=== PATIENT | male | born 1985 | race Caucasian/White ===

== ENCOUNTER 2016-10-15 22:48 | Emergency (ER) | payer MEDICAID ==
[~2016-10-15] VITALS: Ht 177.8 cm; Wt 81.6 kg
[~2016-10-15 22:48] MED LIST: ATIVAN1 M1 PO
--- NOTE | 2016-10-15 23:00 | NUR ---
BIBA TO ER BED 4
[2016-10-15 23:11] VITALS: BP 137/55
[2016-10-16] MEDS ORDERED: KETOROLAC 60 MG/2 ML VIAL IM ONE (00:25)
[2016-10-16 03:20] VITALS: BP 122/60
--- NOTE | 2016-10-16 05:04 | NUR ---
Note donavanone in EDM - 10/16/16 at 0535 by IAN Patient discharged with v/s stable. Written and verbal after care instructions given and explained. Patient alert, oriented and verbalized understanding of instructions. Ambulatory with steady gait. All questions addressed prior to discharge. ID band removed. Patient advised to follow up with PMD. Rx of NAPROSYN given. Patient educated on indication of medication including possible reaction and side effects. Opportunity to ask questions provided and answered.
== END 2016-10-16 02:35 | disposition home or self-care (01) ==
LOC: MED 22:48
DX: M54.9 Dorsalgia, unspecified (principal)
CPT/HCPCS: 96372; 99283; J1885

== ENCOUNTER 2017-01-06 19:17 | Emergency (ER) | payer MEDICAID ==
[~2017-01-06] VITALS: Ht 180.3 cm; Wt 92.1 kg
[~2017-01-06 19:17] MED LIST changes: -ATIVAN1 M1 PO; +LORA-476 PO
[2017-01-06 19:32] VITALS: BP 127/72
[2017-01-06] MEDS ORDERED: ENAL5TAB76 PO (19:42)
[2017-01-06] MEDS ORDERED: GABA300C PO (19:43)
[2017-01-06] MEDS ORDERED: METH500T14 PO (19:44)
[2017-01-06] MEDS ORDERED: OXYC5TAB92 PO (19:44)
--- NOTE | 2017-01-06 20:25 | NUR ---
TO ER OF
[2017-01-06] MEDS ORDERED: KETOROLAC 60 MG/2 ML VIAL IM ONE (20:30)
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
[2017-01-06 21:32] VITALS: BP 122/73
--- NOTE | 2017-01-06 21:33 | NUR ---
Patient discharged with v/s stable. Written and verbal after care instructions given and explained. Patient alert, oriented and verbalized understanding of instructions. Ambulatory with steady gait. All questions addressed prior to discharge. ID band removed. Patient advised to follow up with PMD. Rx of OXYCODONE 5MG-325MG Q4HRS/PRN given. Patient educated on indication of medication including possible reaction and side effects. Opportunity to ask questions provided and answered.
== END 2017-01-06 21:32 | disposition home or self-care (01) ==
LOC: MED 19:17
DX: M54.2 Cervicalgia (principal); W11.XXXA Fall on and from ladder, initial encounter; Y93.89 Activity, other specified; Y92.89 Other specified places as the place of occurrence of the external cause; Y99.8 Other external cause status
CPT/HCPCS: 72040; 96374; 99284; J1885

== ENCOUNTER 2017-08-19 16:57 | Emergency (ER) | payer MEDICAID ==
[~2017-08-19] VITALS: Ht 177.8 cm; Wt 86.2 kg
[~2017-08-19 16:57] MED LIST changes: +ENAL5TAB20 PO; +GABA300C PO; +METH500T14 PO; +OXYC5TAB4 PO
[2017-08-19 17:00] VITALS: BP 111/67
[2017-08-19] MEDS ORDERED: NACL 0.9% 1,000 ML IV ONE (17:15)
[2017-08-19] MEDS ORDERED: MORPHINE SULFATE 4 MG/ML SYR IVP ONE (17:25)
[2017-08-19 18:22] LABS: APPEARANCE,URINE CLEAR (CLEAR); BILIRUBIN,URINE NEGATIVE (NEGATIVE); BLOOD, URINE NEGATIVE (NEGATIVE); COLOR,URINE YELLOW (YELLOW); LEUKOCYTE ESTERASE ,URINE NEGATIVE (NEGATIVE); NITRITE, URINE NEGATIVE (NEGATIVE); UGLUCOSE NEGATIVE (NEGATIVE)
[2017-08-19 18:39] LABS: BASOPHILS # (AUTO) 0.3 K/uL (0.00-0.22); HEMATOCRIT 41.7 % (36-52); HEMOGLOBIN 13.8 g/dL (12.0-18.0); LYMPHOCYTES # (AUTO) 0.9 K/uL (2.0-11.5); MEAN CORPUSCULAR HEMOGLOBIN 28 pg (27-31); MEAN CORPUSCULAR HGB CONC 33 g/dL (33-37); MEAN CORPUSCULAR VOLUME 85.4 fL (80-94); MONOCYTES # (AUTO) 0.6 K/uL (0.8-1.0); NEUTROPHILS # (AUTO) 7.2 K/uL (1.8-7.7); PLATELET COUNT (AUTO) 248 K/uL (140-450); RED BLOOD CELL COUNT(AUTO) 4.89 MIL/uL (4.20-6.10); RED CELL DISTRIBUTION WIDTH 14.1 % (11.6-13.7)
[2017-08-19 18:52] LABS: BARBITURATE, URINE NEGATIVE ng/ml (NEG <=200); BENZODIAZEPINE, URINE NEGATIVE ng/mL (NEG <=200); CANNABINOID, URINE NEGATIVE ng/mL (NEG <=50); COCAINE, URINE NEGATIVE ng/mL (NEG <=300); OPIATE, URINE NEGATIVE ng/mL (NEG <=2000); PHENCYCLIDINE SCREEN,URINE NEGATIVE ng/mL (NEG <=25)
[2017-08-19 19:18] LABS: ANION GAP 15.1 (8-16); CARBON DIOXIDE 22.8 mmol/L (21-32); CREATININE 0.7 mg/dL (0.7-1.3); POTASSIUM 2.9 mmol/L (3.5-5.1)
[2017-08-19 19:19] LABS: ALBUMIN 3.8 g/dL (3.4-5.0); TOTAL BILIRUBIN 0.8 mg/dL (0.0-1.0)
[2017-08-19] MEDS ORDERED: KETOROLAC 30 MG/ML VIAL IM ONE (19:50)
[2017-08-19] MEDS ORDERED: POTASSIUM CHLORIDE 10 MEQ TABER PO ONE (19:50)
[2017-08-19 20:18] VITALS: BP 120/65
== END 2017-08-19 20:18 | disposition home or self-care (01) ==
LOC: MED 16:57
DX: M54.2 Cervicalgia (principal); F19.90 Other psychoactive substance use, unspecified, uncomplicated; F10.129 Alcohol abuse with intoxication, unspecified; E87.6 Hypokalemia; Z79.899 Other long term (current) drug therapy; Z88.8 Allergy status to other drugs, medicaments and biological substances
CPT/HCPCS: 36415; 80053; 80305; 81003; 85025; 93005; 99285; J1885; J2270; J7030; 96361; 96372; 96374

== ENCOUNTER 2018-08-01 12:41 | Emergency (ER) | payer MEDICAID ==
[~2018-08-01] VITALS: Ht 180.3 cm; Wt 81.6 kg
[2018-08-01 12:44] VITALS: BP 87/33
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
--- NOTE | 2018-08-01 12:44 | NUR ---
PT BIB ALS TO ER BED 11
--- NOTE | 2018-08-01 13:00 | NUR ---
PT REFUSING TO STAY ON MONITOR AT THIS TIME, ADVISED TO RETURN TO STRETCHER.
[2018-08-01] MEDS ORDERED: BUS5 PO (13:30)
[2018-08-01] MEDS ORDERED: LORA1TAB7 PO (13:30)
[2018-08-01] MEDS ORDERED: PHEN100C4 PO (13:30)
[2018-08-01] MEDS ORDERED: AMLO2.5T PO (13:30)
[2018-08-01] MEDS ORDERED: NACL 0.9% 2,000 ML IV SCH ×2 (13:33→15:57)
[2018-08-01] MEDS ORDERED: LORazepam 2 MG/ML VIAL IVP ONE (13:35)
--- NOTE | 2018-08-01 14:00 | NUR ---
PT FOUND OUT OF STRETCHER, RIPPED OFF MONITOR, ADVISED TO STAY IN STRETCHER.
[2018-08-01] MEDS ORDERED: MAG SULF 2000 MG/WATER PREMIX 50 ML IV ONE (14:20)
[2018-08-01 14:41] LABS: BASOPHILS # (AUTO) 0.1 K/uL (0.00-0.22); BASOPHILS % (AUTO) 1.2 % (0.0-2.0); EOSINOPHILS # (AUTO) 0.1 K/uL (0-0.4); EOSINOPHILS % (AUTO) 1.2 % (0.0-4.0); HEMATOCRIT 41.2 % (36-52); HEMOGLOBIN 13.6 g/dL (12.0-18.0); LYMPHOCYTES # (AUTO) 1.4 K/uL (2.0-11.5); LYMPHOCYTES % (AUTO) 23.2 % (20.5-51.1); MEAN CORPUSCULAR HEMOGLOBIN 30 pg (27-31); MEAN CORPUSCULAR HGB CONC 33 g/dL (33-37); MEAN CORPUSCULAR VOLUME 89.2 fL (80-94); MONOCYTES # (AUTO) 0.6 K/uL (0.8-1.0); MONOCYTES % (AUTO) 9.8 % (1.7-9.3); NEUTROPHILS # (AUTO) 3.8 K/uL (1.8-7.7); NEUTROPHILS % (AUTO) 64.6 % (42.2-75.2); PLATELET COUNT (AUTO) 206 K/uL (140-450); RED BLOOD CELL COUNT(AUTO) 4.62 MIL/uL (4.20-6.10); RED CELL DISTRIBUTION WIDTH 16.8 % (11.6-13.7); WHITE BLOOD COUNT (AUTO) 5.9 K/uL (4.8-10.8)
--- NOTE | 2018-08-01 15:00 | NUR ---
PT ON STRETCHER IN SUPINE POSITION A/OX4, EYES OPEN. BED IN LOW POSITION, SIDE RAILES UP AND LOCKED, FULL MONITOR ON, WILL CONTINUE TO MONITOR CLOSELY.
--- NOTE | 2018-08-01 15:03 | NUR ---
SHRUTI/RN ACCOMPANYING PT TO CT
[2018-08-01 15:07] LABS: BARBITURATE, URINE NEG. ng/ml (NEG <=200); BENZODIAZEPINE, URINE NEG. ng/mL (NEG <=200); CANNABINOID, URINE NEG. ng/mL (NEG <=50); COCAINE, URINE NEG. ng/mL (NEG <=300); OPIATE, URINE NEG. ng/mL (NEG <=2000); PHENCYCLIDINE SCREEN,URINE NEG. ng/mL (NEG <=25)
[2018-08-01 15:07] LABS: ALBUMIN 3.5 g/dL (3.4-5.0); ANION GAP 8.9 (8-16); ASPARTATE AMINOTRANSFERASE 122 U/L (15-37); CHLORIDE 97 mmol/L (98-107); GFR ARICAN-AMERICAN 110 mL/min (>90); GLUCOSE 106 mg/dL (74-106); SODIUM SERUM 136 mmol/L (136-145); TOTAL BILIRUBIN 0.5 mg/dL (0.0-1.0); UREA NITROGEN, BLOOD 11 mg/dL (7-18)
[2018-08-01 15:09] LABS: POTASSIUM 2.9 mmol/L (3.5-5.1)
[2018-08-01 15:16] LABS: APPEARANCE,URINE CLEAR (CLEAR); BILIRUBIN,URINE NEGATIVE (NEGATIVE); BLOOD, URINE TRACE-L (NEGATIVE); COLOR,URINE YELLOW (YELLOW); LEUKOCYTE ESTERASE ,URINE NEGATIVE (NEGATIVE); NITRITE, URINE NEGATIVE (NEGATIVE); PH,URINE 7.5 (5.0-9.0); UGLUCOSE NEGATIVE (NEGATIVE)
[2018-08-01 15:20] LABS: SALICYLATE < 2.8 mg/dL (2.8-20.0)
[2018-08-01] MEDS ORDERED: POTASSIUM CHLORIDE 10 MEQ TABER PO ONE ×2 (15:20→15:35)
[2018-08-01] MEDS ORDERED: KCL 20 MEQ/WATER INJ PREMIX 100 ML IV ONE (15:20)
[2018-08-01 15:21] LABS: ACETAMINOPHEN < 0.5 ug/ml (10-30)
[2018-08-01] MEDS ORDERED: LIDOCAINE/EPI 1% 1:100000 20 ML VIAL INJ ONE (15:50)
[2018-08-01] MEDS ORDERED: SILVER NITRATE APPLICATOR 1 EA SWAB TP ONE (15:50)
[2018-08-01 15:55] LABS: FREE T4 (FREE THYROXINE) 1.06 ng/dL (0.76-1.46); THYROID STIMULATING HORMONE 1.21 uIU/mL (0.34-3.74)
[2018-08-01] MEDS ORDERED: THIAMINE 200 MG/2 ML VIAL IM ONE (16:00)
--- NOTE | 2018-08-01 16:00 | NUR ---
PT ON STRETCHER IN SUPINE POSITION EYES OPEN, A/OX4, RESPIS E/U, ON FULL MONITOR BED IN LOW POSITION AND LOCKED, WILL CONTINUE TO MONITOR CLOSELY.
[2018-08-01] MEDS ORDERED: CLON0.5T PO (16:26)
[2018-08-01] MEDS ORDERED: METO25TE2 PO (16:26)
[2018-08-01] MEDS ORDERED: OXYC5TAB4 PO (16:26)
--- NOTE | 2018-08-01 17:00 | NUR ---
PT ON STRETCHER IN SUPINE POSITION, EYES OPEN, A/OX4 ON FULL MONITOR. BED IN LOW POSITION, LOCKED, AND NO IDENTIFIED REQUESTS AT THIS TIME.
--- NOTE | 2018-08-01 18:22 | NUR ---
PT REFUSING TO STAY ON MONITOR DEMANDING HIS HOME MEDICATIONS BUT UNABLE TO RECALL SPECIFIC DOSAGES AND TIMES
[2018-08-01] MEDS ORDERED: THIAMINE 100 MG TAB PO SCH (18:25)
--- NOTE | 2018-08-01 18:45 | NUR ---
PT STATES I'M LEAVING, RIPPED OFF MONITOR. EDMD AWARE.
--- NOTE | 2018-08-01 19:00 | NUR ---
PT REDIRECTED TO STRETCHER, PLACED ON MONITOR, CHANGED BACK INTO GOWN, STATES HE IS OKAY WITH BEING TRANSFERRED TO [place].
--- NOTE | 2018-08-01 19:00 | NUR ---
REPORT GIVEN TO KAMERON YOUNG, TRANSFER OF CARE AT THIS TIME
--- NOTE | 2018-08-01 19:15 | NUR ---
Report recieved from Diana. Will contine to monitor.
--- NOTE | 2018-08-01 19:19 | NUR ---
[facility] TRANSPORT AT BEDSIDE
--- NOTE | 2018-08-01 19:25 | NUR ---
Patient to be transferred to [facility]. Is being transferred due to insurance. Receiving facility has accepting physician and available space. ER physician has signed transfer form. Patient or responsible constitution party has agreed to transfer and signed form. Patient belongings inventoried and will be sent with patient. Copy of nursing notes, lab reports, EKG, Physicians Orders and X-rays to be sent with patient. Report called to charge nurse at receiving facility. [facility] ambulance service has been called for transfer.
[2018-08-01 20:25] VITALS: BP 116/68
--- NOTE | 2018-08-04 11:50 | NUR ---
Late Entry. 2 gms Mag IVPB was given and completed at 1650
== END 2018-08-01 19:25 | disposition short-term general hospital (02) ==
LOC: MED 12:41
DX: G40.909 Epilepsy, unspecified, not intractable, without status epilepticus (principal); E87.6 Hypokalemia; E83.42 Hypomagnesemia; F10.129 Alcohol abuse with intoxication, unspecified; I95.9 Hypotension, unspecified; R94.31 Abnormal electrocardiogram [ECG] [EKG]; E87.2 Acidosis; E87.8 Other disorders of electrolyte and fluid balance, not elsewhere classified; I10 Essential (primary) hypertension; Z79.899 Other long term (current) drug therapy
CPT/HCPCS: 36415; 70450; 71045; 80053; 80305; 81003; 82550; 83605; 83735; 84439; 84443; 84479; 84484; 85025; 93005; 96365; 96366; 99285; G0480; G0482; J3475; J7030; Q0092; 96361; 99284

== ENCOUNTER 2018-09-11 01:23 | Emergency (ER) | payer MEDICAID ==
[~2018-09-11] VITALS: Ht 175.3 cm; Wt 104.3 kg
[~2018-09-11 01:23] MED LIST changes: +CLON0.5T PO; -ENAL5TAB20 PO; -GABA300C PO; -LORA-476 PO; -METH500T14 PO; +METO25TE2 PO
[2018-09-11 01:34] VITALS: BP 76/49
--- NOTE | 2018-09-11 01:40 | NUR ---
PT ALOC, ETOH, PT WAS IN ER EARLIER BUT ELOPPED. PT WAS FOUND BY PD FACE DOWN ON GRASS. PT STATED HE FELL AND IS COMPLAINING OF NECK PAIN. PT HAS HX OF SEIZURES, HTN.
--- NOTE | 2018-09-11 01:40 | NUR ---
DR. DARDEN AT BEDSIDE.
--- NOTE | 2018-09-11 02:25 | NUR ---
TAKEN IN [facility]. ON MONITOR ESCORTED BY RN AND EMT.
--- NOTE | 2018-09-11 02:48 | NUR ---
PATIENT BACK FROM CT.
--- NOTE | 2018-09-11 03:28 | NUR ---
Patient sleeping. c-collar removed per Dr. Garduno order, patient arrousable to verbal stimuli.
--- NOTE | 2018-09-11 05:20 | NUR ---
patient up and walking, acting appropriate. CIRILOD made aware.
[2018-09-11 05:39] VITALS: BP 92/58
--- NOTE | 2018-09-11 05:40 | NUR ---
Patient discharged with v/s stable. Written and verbal after care instructions given and explained. Patient verbalized understanding. Ambulatory with steady gait. All questions addressed prior to discharge. Advised to follow up with PMD. Cab called for patient.
== END 2018-09-11 05:40 | disposition home or self-care (01) ==
LOC: MED 01:23
DX: G89.29 Other chronic pain (principal); M54.2 Cervicalgia; F10.129 Alcohol abuse with intoxication, unspecified; I10 Essential (primary) hypertension; G40.909 Epilepsy, unspecified, not intractable, without status epilepticus; Z88.1 Allergy status to other antibiotic agents; Z88.5 Allergy status to narcotic agent; Z79.891 Long term (current) use of opiate analgesic; Z79.899 Other long term (current) drug therapy; Z98.890 Other specified postprocedural states; Y90.9 Presence of alcohol in blood, level not specified
CPT/HCPCS: 70450; 72125; 99284

== ENCOUNTER 2019-06-03 12:15 | Inpatient (IN) | payer MEDICAID ==
[2019-06-03] VITALS (27 sets, daily range): BP systolic 61–125; BP diastolic 34–84
[~2019-06-03] VITALS: Ht 167.6 cm; Wt 99.8 kg
--- NOTE | 2019-06-03 12:25 | NUR ---
PT BIBA C/O ALTERED SECONDARY TO ETOH AND USE OF CLONAZEPA. PT IS HYPOTENSIVE AT THIS TIME. BOLUS IS RUNNING VIA LEFT WRIST 20G. PT IS A&OX1, SLEEPY, AND UNABLE TO ANSWER QUESTIONS. PATIENT IS NOT ABLE TO DESCRIBE PAIN AT THIS TIME; PATIENT POSITIONED FOR COMFORT; HOB ELEVATED; BEDRAILS UP X2; BED DOWN. ER MD MADE AWARE OF PT STATUS. PT IS ON MONITOR FOR CONTINUING MONITORING VITAL SIGNS.
[2019-06-03] MEDS ORDERED: NACL 0.9% 1,000 ML IV ONE ×2 (12:30→13:30)
--- NOTE | 2019-06-03 13:00 | NUR ---
PT IS HYPOTENSIVE. BOLUS IS RUNNING VIA LEFT WRIST 20G. PT IS ON MONITOR WILL CONTINUE TO MONITOR PT'S VITAL SIGNS.
[2019-06-03 13:07] LABS: BASOPHILS # (AUTO) 0.1 K/uL (0.00-0.22); EOSINOPHILS # (AUTO) 0.2 K/uL (0-0.4); EOSINOPHILS % (AUTO) 3.3 % (0.0-4.0); HEMATOCRIT 27.4 % (36-52); HEMOGLOBIN 9.2 g/dL (12.0-18.0); LYMPHOCYTES # (AUTO) 1.3 K/uL (2.0-11.5); LYMPHOCYTES % (AUTO) 23.8 % (20.5-51.1); MEAN CORPUSCULAR HEMOGLOBIN 32 pg (27-31); MEAN CORPUSCULAR HGB CONC 33 g/dL (33-37); MEAN CORPUSCULAR VOLUME 94.5 fL (80-94); MONOCYTES # (AUTO) 0.8 K/uL (0.8-1.0); MONOCYTES % (AUTO) 13.5 % (1.7-9.3); NEUTROPHILS # (AUTO) 3.3 K/uL (1.8-7.7); NEUTROPHILS % (AUTO) 58.4 % (42.2-75.2); PLATELET COUNT (AUTO) 288 K/uL (140-450); RED CELL DISTRIBUTION WIDTH 16.2 % (11.6-13.7); WHITE BLOOD COUNT (AUTO) 5.7 K/uL (4.8-10.8)
[2019-06-03] MEDS ORDERED: NALOXONE 0.4 MG/ML VIAL IVP ONE ×2 (13:30→15:15)
[2019-06-03 13:42] LABS: ANION GAP 14.1 (8-16); CARBON DIOXIDE 22.5 mmol/L (21-32); CHLORIDE 106 mmol/L (98-107); CREATININE 1.4 mg/dL (0.7-1.3); GFR ARICAN-AMERICAN 74 mL/min (>90); GLUCOSE 112 mg/dL (74-106); POTASSIUM 3.6 mmol/L (3.5-5.1); SODIUM SERUM 139 mmol/L (136-145); UREA NITROGEN, BLOOD 16 mg/dL (7-18)
[2019-06-03] MEDS ORDERED: NALOXONE PFS 2 MG/2 ML SYR ONE ×2 (13:47→13:48)
[2019-06-03 13:48] LABS: ALBUMIN 3.1 g/dL (3.4-5.0); ASPARTATE AMINOTRANSFERASE 9 U/L (15-37); TOTAL BILIRUBIN 0.3 mg/dL (0.0-1.0)
[2019-06-03 13:49] LABS: ACETAMINOPHEN < 0.5 ug/ml (10-30); SALICYLATE < 2.8 mg/dL (2.8-20.0)
--- NOTE | 2019-06-03 14:10 | NUR ---
STRAIGHT CATH IMPLEMENTED AND OBTAINED URINE SAMPLE. PT TOLERATED WELL.
--- NOTE | 2019-06-03 14:20 | NUR ---
PT IS TAKING TO CT SCAN. DR. STEPHENSON ASSESSED PT AND SAID PT IS OK TO DO CT SCAN W/O BEING ON MONITOR. IMAGING TECHES ARE TAKING PT VIA Chronicity AT THIS TIME.
--- NOTE | 2019-06-03 14:25 | NUR ---
RECEIVED CALL FROM [employer] BECAUSE PATIENT WAS COMBATIVE. FOUND PATIENT ATTEMPTING TO LEAVE CT TABLE AND WAS COMBATIVE. DR STEPHENSON MADE AWARE.
--- NOTE | 2019-06-03 14:27 | NUR ---
DR STEPHENSON AT CT WITH PATIENT. PT TO BE RETURNED TO BED [address]
--- NOTE | 2019-06-03 14:35 | NUR ---
PT IS COMBATIVE AT CT SCAN ROOM AND HAS BEEN TAKEN BACK VIA GURNEY ASSISTED BY TWO IMAGING TECHES, RN, AND EMT. PT IS ON BEHAVIORAL RESTRAINTS ACCORDING TO DR. STEPHENSON'S ORDER. PT IS RESTING IN BED AT THIS TIME.
--- NOTE | 2019-06-03 15:10 | NUR ---
DR STEPHENSON AT BEDSIDE AND AWARE PT BP IS 80s/30s. TO INPUT MORE ORDERS.
[2019-06-03] MEDS ORDERED: NACL 0.9% 500 ML IV ONE (15:15)
--- NOTE | 2019-06-03 15:17 | NUR ---
PHLEB AT BEDSIDE
[2019-06-03] MEDS ORDERED: cefTRIAXone 1,000 MG VIAL ONE (15:42)
[2019-06-03 15:46] LABS: APPEARANCE,URINE CLEAR (CLEAR); BILIRUBIN,URINE NEGATIVE (NEGATIVE); BLOOD, URINE NEGATIVE (NEGATIVE); COLOR,URINE YELLOW (YELLOW); LEUKOCYTE ESTERASE ,URINE NEGATIVE (NEGATIVE); NITRITE, URINE NEGATIVE (NEGATIVE); UGLUCOSE NEGATIVE (NEGATIVE)
[2019-06-03 15:56] LABS: BARBITURATE, URINE NEG. ng/ml (NEG <=200); BENZODIAZEPINE, URINE POS. ng/mL (NEG <=200); CANNABINOID, URINE NEG. ng/mL (NEG <=50); COCAINE, URINE NEG. ng/mL (NEG <=300); OPIATE, URINE NEG. ng/mL (NEG <=2000); PHENCYCLIDINE SCREEN,URINE NEG. ng/mL (NEG <=25)
--- NOTE | 2019-06-03 16:14 | NUR ---
PT IS SLEEPING IN THE BED. BP IS 71/42MMHG. HR [address] DR. STEPHENSON NOTIFIED. PT IS ON MONITOR WILL CONTINUE MONITOR PT'S VITAL SIGNS.
[2019-06-03] MEDS ORDERED: ONDANSETRON 4 MG/2 ML VIAL IVP PRN (16:45)
[2019-06-03] MEDS ORDERED: cloNIDine 0.1 MG TAB PO PRN (16:45)
[2019-06-03] MEDS ORDERED: DOCUSATE SODIUM 250 MG GELCAP PO PRN (16:45)
[2019-06-03] MEDS ORDERED: HYDROcodone/APAP 5/325 MG 1 TAB TAB PO PRN (16:45)
[2019-06-03] MEDS ORDERED: SODIUM PHOSPHATE 118 ML ENEM RC PRN (16:45)
[2019-06-03] MEDS ORDERED: ALUMINUM HYD/MAG/SIMETHICONE 30 ML UDC PO PRN (16:45)
[2019-06-03] MEDS ORDERED: BISACODYL 10 MG SUPP RC PRN (16:45)
[2019-06-03] MEDS ORDERED: guaiFENesin DM 200/20 MG-10 ML 10 ML UDC PO PRN (16:45)
[2019-06-03] MEDS ORDERED: diphenhydrAMINE 50 MG/ML VIAL IVP PRN (16:45)
[2019-06-03] MEDS ORDERED: POTASSIUM CHLORIDE 10 MEQ TABER PO PRN (16:45)
[2019-06-03] MEDS ORDERED: ACETAMINOPHEN 650 MG SUPP RC PRN (16:45)
[2019-06-03] MEDS ORDERED: IPRATROPIUM 0.02% 0.5 MG/2.5 ML NEBU INH PRN (16:45)
[2019-06-03] MEDS ORDERED: MAG SULF 2000 MG/WATER PREMIX 50 ML IV PRN (16:45)
[2019-06-03] MEDS ORDERED: ALBUTEROL 0.083% 2.5 MG/3 ML NEBU INH PRN (16:45)
[2019-06-03] MEDS ORDERED: ACETAMINOPHEN 325 MG TAB PO PRN (16:45)
[2019-06-03] MEDS ORDERED: MAGNESIUM OXIDE 400 MG TAB PO PRN (16:45)
--- NOTE | 2019-06-03 17:35 | NUR ---
ADMITTED FROM ER THIS 34 YEAR OLD MALE PER [facility]. BY ER NURSES , DX BENZODIAZEPINE OD AND ENCEPHALOPATHY. LETHARGIC BUT AROUSABLE TO SHAKING. RESPONDS VERBALLY, SPEECH IS SLURRED. HEPLOCK ON LEFT AC G 18. INTACT. SEVERE WEAKNESS. SL MOVEMENT OF HANDS NOTED WHEN ASKED TO MOVE. 02 2 L/MIN/NC. BREATHE SOUNDS DIMINISHED.
--- NOTE | 2019-06-03 17:40 | NUR ---
Patient will be admitted to care of BENZO OVERDOSE, ENCEHALOPATHY. Admited to ICU. Will go to BED 5. Belongings list completed. Report to HANNAH LONDON.
--- NOTE | 2019-06-03 17:45 | NUR ---
IV D5 0.45% NS STARTED AT 75 ML/HR.
--- NOTE | 2019-06-03 17:45 | NUR ---
PER ER NURSE PATIENCE. PT. GETS VERY COMBATIVE AND PULLED HIS IV IN ER. PT.WAS CALM WHEN TRANSFERRED FROM [facility] TO ICU BED. REORIENTED TO THE UNIT AND NURSES.REASURED
[2019-06-03] MEDS: DEXT 5% / NACL 0.45% 1,000 ML IV SCH (17:49)
--- NOTE | 2019-06-03 17:50 | NUR ---
PT. WANTS HIS MOTHER TO BE CALLED.GAVE MOTHER'S PHONE NUMBER. SPEECH SLURRED AT THIS TIME.
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
--- NOTE | 2019-06-03 18:00 | NUR ---
BP 61/34. DR. CHRIS ARAUZ. 0.9 NS BOLUS STARTED. AMADO CATH. FR 16 INSERTED. OBTAINED 800 ML CLEAR YELLOWISH URINE.
[2019-06-03] MEDS ORDERED: NACL 0.9% 1,000 ML IV SCH (18:20)
--- NOTE | 2019-06-03 18:20 | NUR ---
DR. PEREZ CALLED BACK. MADE AWARE OF PT'S LOW BLOOD PRESSURE AND LETHARGY. GAVE ORDERS. AWARE THAT 0.9 NS BOLUS WAS STARTED AT 1800.
[2019-06-03] MEDS: DOPamine 400 MG/D5W PREMIX 250 ML IV PRN (18:40)
--- NOTE | 2019-06-03 18:40 | NUR ---
IV STARTED ON LEFT FA WITH G 20 ANGIOCATH. DOPAMINE DRIP STARTED AT 5 MCG/KG/MIN. (SEE IV SPREADSHEET)
--- NOTE | 2019-06-03 19:00 | NUR ---
REMAINS LETHARGIC BUT AROUSABLE. BY CALLING NAME. OPENS EYES.
--- NOTE | 2019-06-03 19:15 | NUR ---
REPORT GIVEN TO HAWK YOUNG.
--- NOTE | 2019-06-03 19:18 | NUR ---
RECEIVED REPORT FROM DAYSHIFT NURSE AT BEDSIDE, PATIENT LETHARGIC, OPENS EYES BUT NO EYE CONTACT, NONVERBAL, MUMBLING SOME WORDS. DOES NOT FOLLOW COMMANDS. ON NASAL CANNULA 2LPM. SATURATIONS 95%, BREATHING IS UNLABORED, LUNG SOUNDS CLEAR. NO SIGNS OF COUGH OR CONGESTION. CONNECTED TO BRICK CHIMNEY BUILDER, HEART RATE TRENDING LOW 58-65 BPM. ON DOPAMINE DRIP, 20 MCG/KG/MIN-51.02ML/HR. BLOOD PRESSURE 106/62. SKIN IS WARM AND DRY, AFEBRILE. ABDOMEN IS SOFT AND NONTENDER, ACTIVE BOWEL SOUNDS. LEFT AC 20G PERIPHERAL IV, FLUSHED AND PATENT, INFUSING DOPAMINE DRIP. LEFT FOREARM 20 G PERIPHERAL IV, INFUSING IV FLUIDS, D51/2NS @ 75ML/HR. NO SYMPTOMS WHEN FLUSHED. AMADO CATHETER IN PLACE, CLEAR YELLOW URINE NOTED. SCD's IN PLACE TO BILATERAL LOWER EXTREMITIES. BED IS LOCKED AND IN LOWEST POSITION, SIDERAILS UPx3, SAFETY ALARMS IN PLACE. WILL CONTINUE TO MONITOR.
--- NOTE | 2019-06-03 20:27 | NUR ---
SPOKE WITH DR. PEREZ, UPDATED ON PATIENTS CONDITION. PATIENT BARELY ALERT TO HARD STERNAL RUB, ONLY OPENS EYES SLIGHTLY, NO EYE CONTACT, MUMBLING WORDS. DOPAMINE DRIP NOW AT 15 MCG/KG/MIN AND STILL CONTINUED ON PERIPHERAL IV. NEW ORDERS RECEIVED, CONFIRMED TO GIVE NARCAN 0.4 MG AND TO ORDER SURGICAL CONSENT TOMORROW FOR CENTRAL LINE INSERTION. CONFIRMED FULL CODE STATUS AND FOR CT HEAD SCAN TOMORROW MORNING. WILL CARRY OUT.
[2019-06-03] MEDS ORDERED: NALOXONE 0.4 MG/ML VIAL IVP SCH (20:40)
--- NOTE | 2019-06-03 21:52 | NUR ---
PATIENT WOKE UP SUDDENLY YELLING NURSE MY SPINAL CORD! MY BACK IT HURTS! I NEED DILAUDID IV. PATIENT REPORTS AT [facility] HE RECEIVES DILAUDID FOR PAIN. WILL PAGE MD FOR ORDERS.
--- NOTE | 2019-06-03 21:57 | NUR ---
NEW ORDERS RECEIVED FROM DR. PEREZ, 0.5 MG DILAUDID IVP Q4H FOR SEVERE PAIN. PATIENTS CHART STATES AN ALLERGY TO HYDROCODONE. ASKED PATIENT ABOUT THE ALLERGIES AND PATIENT REPORTS HE CURRENTLY TAKES HYDROCODONE AND HYDROMORPHONE FOR CHRONIC PAIN AND HAS NEVER HAD A REACTION. SPOKE WITH STEPHANIA FROM [facility] TO CONFIRM OVERRIDE ORDER, STATES TO NOTE THAT PATIENT TOLERATES DILAUDID AND OK TO GIVE. WILL CARRY OUT.
[2019-06-03] MEDS ORDERED: HYDROmorphone 1 MG/ML AMP ONE (22:17)
--- NOTE | 2019-06-03 22:30 | NUR ---
PATIENT NOW AWAKE AND ALERT, MAKING FULL SENTENCES. ABLE TO PROVIDE MEDICAL HISTORY. OPENS EYES, FOLLOWS COMMANDS, ABLE TO MOVE UPPER EXTREMITIES. ALL NEEDS MET AT THIS TIME. PATIENT ORIENTED TO PAIN MEDICATION SCHEDULE.
[2019-06-03] MEDS: HYDROmorphone 1 MG/ML AMP IVP PRN (22:48)
--- NOTE | 2019-06-03 23:23 | NUR ---
PATIENT STATES PAIN IS STILL PRESENT, NOT SEVERE AFTER ADMINISTERED MEDICATION. ASSISTED WITH POSITION CHANGE. WILL CONTINUE TO MONITOR.
[2019-06-04] VITALS (45 sets, daily range): BP systolic 82–138; BP diastolic 38–79
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
[2019-06-04] MEDS: DOPamine 400 MG/D5W PREMIX 250 ML IV PRN (01:56)
--- NOTE | 2019-06-04 01:57 | NUR ---
DEV NEW BAG OF DOPAMINE DRIP.
--- NOTE | 2019-06-04 02:45 | NUR ---
PT COMPLAINING OF PAIN RATES IT 10/10, RADIATES FROM HEAD AND NECK DOWN TO THE LOWER EXTREMITIES. PATIENT ABLE TO MOVE ALL EXTREMITIES BUT REPORTS TOO MUCH PAIN WITH MOVEMENT. PATIENT IS AWAKE AND ALERT, ABLE TO EXPLAIN TO RN WHAT HAPPENED PRIOR TO ADMISSION. DENIES SUICIDAL IDEATION, UPDATED ON TREATMENT PLAN. VERBALIZES UNDERSTANDING.
[2019-06-04] MEDS: HYDROmorphone 1 MG/ML AMP IVP PRN ×2 (02:48→06:50)
[2019-06-04] MEDS: LORazepam 2 MG/ML VIAL IVP PRN ×2 (03:05→10:44)
--- NOTE | 2019-06-04 03:10 | NUR ---
BECOMING MORE RESTLESS AND AGITATED, PATIENT UNABLE TO SELF TURN DUE TO SEVERE PAIN AT HEAD, NECK, SPINE, AND GROIN AREA. PATIENT BECOMING MORE ANXIOUS, WILL ADMINISTER PRN MEDICATION.
--- NOTE | 2019-06-04 04:40 | NUR ---
SPONGE BATH, AMADO CARE, AND SKIN CARE PROVIDED. PATIENT RINSED MOUTH. TOLERATED WELL. ASSISTED WITH POSITIONING. PATIENT ALERT AND AWAKE. UPDATED ON PLAN TO HAVE CT SCAN AND NEXT PAIN MEDICATION DUE. SAFETY ALARMS IN PLACE, SIDERAILS UP x3
--- NOTE | 2019-06-04 05:00 | NUR ---
SPOKE WITH STRIPPER APPRENTICE FOR CT SCAN OF THE HEAD, CONFIRMED THERE IS ONE MORE PATIENT IN ER, AND WILL CALL BACK WHEN CT IS AVAILABLE. PATIENT IS ALREADY READY TO GO, UPDATED ON PROCEDURE, WILL MEDICATE WITH PAIN MEDS PRIOR TO TRANSPORT.
[2019-06-04 05:15] LABS: HEMATOCRIT 29.3 % (36-52); HEMOGLOBIN 9.6 g/dL (12.0-18.0); MEAN CORPUSCULAR HEMOGLOBIN 31 pg (27-31); MEAN CORPUSCULAR HGB CONC 33 g/dL (33-37); MEAN CORPUSCULAR VOLUME 95.3 fL (80-94); PLATELET COUNT (AUTO) 258 K/uL (140-450); RED BLOOD CELL COUNT(AUTO) 3.07 MIL/uL (4.20-6.10); RED CELL DISTRIBUTION WIDTH 15.8 % (11.6-13.7); WHITE BLOOD COUNT (AUTO) 4.8 K/uL (4.8-10.8)
[2019-06-04 05:33] LABS: ALBUMIN 3.1 g/dL (3.4-5.0); ANION GAP 12.4 (8-16); CARBON DIOXIDE 23.5 mmol/L (21-32); CREATININE 1.1 mg/dL (0.7-1.3); POTASSIUM 3.9 mmol/L (3.5-5.1); TOTAL BILIRUBIN 0.3 mg/dL (0.0-1.0)
--- NOTE | 2019-06-04 06:17 | NUR ---
CALLING THE XRAY AND CT DEPARTMENT, NO ONE ANSWERING AT THIS TIME.
--- NOTE | 2019-06-04 06:19 | NUR ---
CALLED ER TO SEE IF PRAMOD العلي IS IN THE DEPARTMENT, BEEN CALLING TO SEE IF PT CAN NOW BE TAKEN FOR CT. LEFT A MESSAGE TO SHY TO HAVE THE TECH CALL ICU IF HE GOES IN ER. WILL ATTEMPT TO CALL CT AND RADIOLOGY DEPARTMENT AGAIN.
--- NOTE | 2019-06-04 06:30 | NUR ---
CALLED RADIOLOGY DEPARTMENT, SPOKE WITH ANN. ASKED IF PT CAN BE TAKEN TO CT BEFORE THE SHIFT ENDS. ACCORDING TO HIM, HE CANNOT BE CERTAIN FOR THERE ARE STUDIES ORDERED IN ER THAT ARE TO BE TAKEN CARE OF. MAY NEED TO HAVE THE NEXT SHIFT DO THE CT SCAN. MAY TAKE 1 HOUR BEFORE THE PT CAN BE TAKEN TO CT.
[2019-06-04 06:42] LABS: LYMPHOCYTES % (MANUAL) 28 % (20-46); MONOCYTES % (MANUAL) 16 % (5-12)
[2019-06-04 06:43] LABS: EOSINOPHILS % (MANUAL) 5 % (0-4)
--- NOTE | 2019-06-04 07:30 | NUR ---
RECEIVED PATIENT ON BED.PT NO CO PAIN NOR ANY DISCOMFORT.LEFT AC AND LEFT FOREARM IV PATENT AND INTACT WITH D5.45 AT 75 ML/H AND DOPAMINE AT 10 MCG/KG/MIN.NO SIGNS OF INFILTRATION.AMADO TO GRAVITY WITH YELLOW URINE OUTPUT.NPO ORDERED.EXPLAINED TO PATIENT WILL HAVE CT SCAN OF THE BRAIN.PT VERBAIZED UNDERSTANDING.NSR ON THE MONITOR.
[2019-06-04] MEDS: DEXT 5% / NACL 0.45% 1,000 ML IV SCH (07:36)
--- NOTE | 2019-06-04 08:50 | NUR ---
PT WENT FOR CT OF THE HEAD WITH A MONITOR.
--- NOTE | 2019-06-04 08:52 | NUR ---
PATIENT IS SCREENED AND CATEGORIZED MODERATE NUTRITION RISK. PATIENT WILL BE SEEN WITHIN 1-2 DAY OF ADMISSION. 06/03/2019-06/08/[address]
--- NOTE | 2019-06-04 09:02 | NUR ---
PATIENT IS SCREENED AND CATEGORIZED MODERATE NUTRITION RISK. PATIENT WILL BE SEEN WITHIN 3-5 DAY OF ADMISSION. *DISREGARD PREVIOUS NOTE D/T INCORRECT DATE AND TIME FRAME 06/06/2019-06/08/[address]
--- NOTE | 2019-06-04 09:10 | NUR ---
PT RETURNED FORM CT OF THE HEAD.PT VERY COOPERATIVE AND TOLERATED WELL. Addendum: 06/04/19 at 1026 by Jayne Alicea RN RN MEAN PT RETURNED FROM ct OF THE HEAD.
[2019-06-04] MEDS ORDERED: HYDROmorphone 1 MG/ML AMP IVP SCH (10:07)
--- NOTE | 2019-06-04 11:30 | NUR ---
NO ANXIETY NOTED.
[2019-06-04] MEDS ORDERED: KETOROLAC 30 MG/ML VIAL IVP PRN (11:55)
[2019-06-04] MEDS ORDERED: PHENYTOIN 100 MG/4 ML UDC PO SCH (11:55)
[2019-06-04] MEDS ORDERED: oxyCODONE 5 MG TAB PO PRN (12:00)
--- NOTE | 2019-06-04 12:06 | NUR ---
Dr graves paged because per pt doesnt want oxycodone and wanted dilaudid for pain.per pt oxycodone wears out for 30 to 45 min out of his system.per patient will sign ama.
--- NOTE | 2019-06-04 12:14 | NUR ---
dr graves called back and doesnt want to order dilaudid and doesnt want pt to leave against medical advice because pt is not alert enough.
--- NOTE | 2019-06-04 12:35 | NUR ---
Chelsy Felder transmission supervisor and security talking to patient regarding signing ama .
--- NOTE | 2019-06-04 12:40 | NUR ---
SPOKE WITH PT'S MOTHER JAYANT COSME, TRANSLATED BY PT'S BROTHER ARTUR. PT'S MOTHER AND BROTHER MADE AWARE OF PT'S DECISION TO LEAVE AMA. PER PT'S BROTHER, THEY HAVE BEEN DEALING WITH PT GOING FROM [facility] AFTER [facility]OTHER AND CANNOT COME AND PICK HIM UP. PT IS AAOX4 AT THIS TIME AND STATED HE WILL LEAVE VIA LYFT. RN OUTPATIENT SURGERY ZARIA AND A VALET CASHIER IN THE UNIT AT THIS TIME.
--- NOTE | 2019-06-04 12:46 | NUR ---
DC AMADO ORDERED .PT TOLERATED WELL.
--- NOTE | 2019-06-04 12:50 | NUR ---
SPOKE WITH DR. RENAE REGARDING PT'S DECISION TO LEAVE AMA IF HE DOES NOT GET IV DILAUDID. PER DR. RENAE, ONLY PO OXYCODONE AT THIS TIME. PT EXPLAINED THE RISKS AND CONSEQUENCES OF HAVING SEIZURES AND LEAVING AMA. PT STATED HE WILL TAKE SEIZURE MEDICATION BEFORE LEAVING THE HOSPITAL. GROCERY CLERK CHECKING AND PRIMARY RN AT BEDSIDE AT THIS TIME. Addendum: 06/04/19 at 1416 by Kay Ha RN PER DR. RENAE, OK TO LEAVE AMA IF PT IS AWAKE AND STABLE
--- NOTE | 2019-06-04 12:50 | NUR ---
PT REFUSED DILANTIN AND OXYCODONE.
--- NOTE | 2019-06-04 13:00 | NUR ---
DC IVF ORDERED.
[2019-06-04] MEDS ORDERED: PHENYTOIN 100 MG/4 ML UDC PO ONE (13:08)
--- NOTE | 2019-06-04 13:20 | NUR ---
PT WHEELED TO LOBBY VIA WHEELCHAIR AND AWAITING FOR LYFT. Addendum: 06/04/19 at 1600 by Jayne Alicea RN RN ABOVE TIME SHOULD BE 1520 NOT 1320
--- NOTE | 2019-06-04 13:33 | NUR ---
PT WENT HOME WITH bailee.NO CO PAIN NOR ANY DISCOMFORT. Addendum: 06/04/19 at 1601 by Jayne Alicea RN RN ABOVE TIME SHOULD BE 1533 NOT 1333.
--- NOTE | 2019-06-04 13:34 | NUR ---
PT CO OF BEING NAUSEATED.ZOFRAN GIVEN.
--- NOTE | 2019-06-04 14:21 | NUR ---
NO NAUSEA NOTED.
--- NOTE | 2019-06-04 15:05 | NUR ---
PATIENT WANTED TO LEAVE AGAINST MEDICAL ADVICE .PT ALERT,ORIENTED X 4 .NO CO DIZZINESS.PT GOES TO THE BEDSIDE COMMODE AND HAD A BIG BOWEL MOVEMENT AND HAD URINATED WITH A URINAL WITH STEADY GAIT.NO CO PAIN NOR ANY DISCOMFORT.OXYCODONE HELPED.BUT HE PREFERS DILAUDID AND WILL SEE SOMEBODY THAT IS WHY HE WANTED TO SIGN AGAINST MEDICAL ADVICE AND DONT WANT TO WAIT TO BE DISCHARGED TOMORROW.PT IS IN A PLEASANT MOOD,CONVERSANT AND JOKING.PT ATE 50 PERCENT OF FULL LIQUID DIET.PER PATIENT HIS FAMILY DOESNT LIKE HIM AND WONT PICK HIM UP SO HE CALLED lyft. Addendum: 06/04/19 at 1610 by Jayne Alicea RN RN EXPLAINED TO THE PATIENT THE RISKS AND CONSEQUENCES INVOLVED IN LEAVING THE HOSPITAL AT THIS TIME ,THE BENEFITS OF CONTINUED TREATMENT AND HOSPITALIZATION, AND THE ALTERNATIVES, IF ANY TO CONTINUED TREATMENT AND HOSPITALIZATION..PT IS REFUSING ALL DISCHARGE INSTRUCTIONS ,FLU SHOT ,FFUP DISCHARGE MEDICATIONS,ACTIVITY,DIET,FOLLOW UP,REFERRAL TO THE NEXT LEVEL OF CARE PROVIDER AND OR REFUSE TO AUTHORIZE RELEASE OF HEALTH INFORMATION.DESPITE ALL OF THESE PATIENT WANTED TO LEAVE AGAINST MEDICAL ADVISE.DR OC GARCÍA.MOLDER APPRENTICE Bijal GARCÍA.
--- NOTE | 2019-06-04 15:10 | NUR ---
LEFT AC AND LEFT FOREARM IV REMOVED.PT TOLERATED WELL.NO BLEEDING NOR HEMATOMA NOTED.
== END 2019-06-04 15:33 | disposition left against medical advice (07) | DRG 812 ==
LOC: MED 12:15 → MIC 16:45
PROVIDERS: ADMIT Internal Medicine Pulmonary Disease; ATTEND Internal Medicine Pulmonary Disease
DX: T42.4X1A Poisoning by benzodiazepines, accidental (unintentional), initial encounter (principal); N17.0 Acute kidney failure with tubular necrosis; G93.41 Metabolic encephalopathy; D64.9 Anemia, unspecified; I10 Essential (primary) hypertension; G89.29 Other chronic pain; M54.2 Cervicalgia; G40.909 Epilepsy, unspecified, not intractable, without status epilepticus; F11.10 Opioid abuse, uncomplicated; F10.129 Alcohol abuse with intoxication, unspecified; Z53.29 Procedure and treatment not carried out because of patient's decision for other reasons; E66.9 Obesity, unspecified; F41.9 Anxiety disorder, unspecified; Z88.8 Allergy status to other drugs, medicaments and biological substances; Z79.899 Other long term (current) drug therapy; Y92.89 Other specified places as the place of occurrence of the external cause; Z68.35 Body mass index [BMI] 35.0-35.9, adult
CPT/HCPCS: 36415; 70450; 71045; 80053; 80305; 81003; 81025; 82550; 83605; 84484; 85025; 87040; 87081; 93005; 96361; 96365; 96375; 96376; 99291; C1758; G0480; G0482; J0696; J1170; J1265; J2060; J2310; J2405; J7030; J7060; Q0092

== ENCOUNTER 2021-02-20 16:50 | Emergency (ER) | payer SELFPAY ==
[~2021-02-20] VITALS: Ht 177.8 cm; Wt 108.9 kg
[2021-02-20 16:53] VITALS: BP 132/76
--- NOTE | 2021-02-20 16:53 | NUR ---
35 Y/O MALE BIBA C/O PALPITATIONS XTODAY. PER EMS WAS DISCHARGED FROM [facility] TODAY FOR SEIZURES, WENT TO [facility], HAD VODKA AND STARTED FEELING PALPITATIONS. MEDHX: STROKE, SEIZURE, HTN ALLERGIES: NORCO, BACLOFEN
[2021-02-20] MEDS ORDERED: NACL 0.9% 1,000 ML IV ONE (16:55)
--- NOTE | 2021-02-20 17:03 | NUR ---
PER ERMD 12 LEAD WAS DONE ON PT AND CAME BACL SINUS TACHYCARDIA AT 125 HR.
[2021-02-20] MEDS ORDERED: LORazepam 2 MG/ML VIAL IVP ONE (17:15)
[2021-02-20] MEDS ORDERED: KETOROLAC 30 MG/ML VIAL IVP ONE (17:15)
[2021-02-20] MEDS ORDERED: METOPROLOL 50 MG TAB PO ONE (17:15)
[2021-02-20] MEDS ORDERED: LIB25 PO (18:20)
[2021-02-20] MEDS ORDERED: levETIRAcetam 500 MG TAB PO ONE (18:45)
[2021-02-20 18:54] VITALS: BP 131/95
--- NOTE | 2021-02-20 18:54 | NUR ---
Patient discharged with v/s stable. Written and verbal after care instructions given and explained. Patient alert, oriented and verbalized understanding of instructions. Ambulatory with steady gait. All questions addressed prior to discharge. ID band removed. IV Discontinued. Patient advised to follow up with PMD. Rx of LIBRIUM given. Patient educated on indication of medication including possible reaction and side effects. Opportunity to ask questions provided and answered.
== END 2021-02-20 18:54 | disposition home or self-care (01) ==
LOC: MED 16:50
DX: R00.2 Palpitations (principal); F41.9 Anxiety disorder, unspecified; F10.239 Alcohol dependence with withdrawal, unspecified; I10 Essential (primary) hypertension; Z79.899 Other long term (current) drug therapy; Z98.890 Other specified postprocedural states; Z88.6 Allergy status to analgesic agent; Z88.8 Allergy status to other drugs, medicaments and biological substances; Z88.5 Allergy status to narcotic agent
CPT/HCPCS: 93005; 96361; 96374; 96375; 99284; J1885; J2060

== ENCOUNTER 2021-02-21 00:55 | Emergency (ER) | payer MEDICAID ==
[~2021-02-21] VITALS: Ht 177.8 cm; Wt 108.9 kg
[~2021-02-21 00:55] MED LIST changes: +LIB25 PO
[2021-02-21] MEDS ORDERED: LORazepam 1 MG TAB PO ONE (01:05)
[2021-02-21] MEDS ORDERED: ASPIRIN 325 MG TAB PO ONE (01:05)
[2021-02-21] MEDS ORDERED: IBUPROFEN 800 MG TAB PO ONE (01:05)
[2021-02-21 01:06] VITALS: BP 141/87
--- NOTE | 2021-02-21 01:06 | NUR ---
TO BED AMBULATORY
[2021-02-21 01:29] LABS: BASOPHILS # (AUTO) 0.1 K/uL (0.00-0.22); BASOPHILS % (AUTO) 0.6 % (0.0-2.0); EOSINOPHILS # (AUTO) 0.3 K/uL (0-0.4); HEMOGLOBIN 14.4 g/dL (12.0-18.0); LYMPHOCYTES # (AUTO) 1.9 K/uL (2.0-11.5); LYMPHOCYTES % (AUTO) 22.9 % (20.5-51.1); MEAN CORPUSCULAR HEMOGLOBIN 29 pg (27-31); MEAN CORPUSCULAR HGB CONC 34 g/dL (33-37); MEAN CORPUSCULAR VOLUME 86.7 fL (80-94); MONOCYTES # (AUTO) 1.2 K/uL (0.8-1.0); MONOCYTES % (AUTO) 13.6 % (1.7-9.3); NEUTROPHILS # (AUTO) 5.1 K/uL (1.8-7.7); NEUTROPHILS % (AUTO) 59.9 % (42.2-75.2); PLATELET COUNT (AUTO) 299 K/uL (140-450); RED BLOOD CELL COUNT(AUTO) 4.96 MIL/uL (4.20-6.10); RED CELL DISTRIBUTION WIDTH 14.8 % (11.6-13.7); WHITE BLOOD COUNT (AUTO) 8.5 K/uL (4.8-10.8)
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
[2021-02-21 01:59] LABS: ALBUMIN 3.9 g/dL (3.4-5.0); ANION GAP 16.4 (8-16); CARBON DIOXIDE 24.9 mmol/L (21-32); CREATININE 0.9 mg/dL (0.6-1.3); POTASSIUM 3.3 mmol/L (3.5-5.1); TOTAL BILIRUBIN 0.7 mg/dL (0.0-1.0)
[2021-02-21] MEDS ORDERED: POTASSIUM CHLORIDE 10 MEQ TABER PO ONE (02:50)
[2021-02-21 03:25] VITALS: BP 141/87
--- NOTE | 2021-02-21 03:25 | NUR ---
Patient discharged with v/s stable. Written and verbal after care instructions given and explained. Patient verbalized understanding. Ambulatory with steady gait. All questions addressed prior to discharge. Advised to follow up with PMD.
== END 2021-02-21 03:25 | disposition home or self-care (01) ==
LOC: MED 00:55
DX: R07.89 Other chest pain (principal); R06.02 Shortness of breath; I10 Essential (primary) hypertension; Z79.899 Other long term (current) drug therapy; Z88.1 Allergy status to other antibiotic agents; Z88.5 Allergy status to narcotic agent; Z88.8 Allergy status to other drugs, medicaments and biological substances
CPT/HCPCS: 36415; 71045; 80053; 84484; 85025; 93005; 99285

== ENCOUNTER 2021-03-07 19:17 | Inpatient (IN) | payer MEDICAID, OTHER ==
--- NOTE | 2020-03-08 19:35 | NUR ---
RECEIVED PT FROM DAY SHIFT RN FOR CONTINUITY OF CARE. PT IS STABLE. NOT IN ANY DISTRESS. CALL LIGHT WITHIN REACH. WILL CONTINUE TO MONITOR.
--- NOTE | 2020-03-09 00:05 | NUR ---
PTS IV CATHETER WAS PULLED OUT. REINSERTED IV ON THE RIGHT HAND G22.
[~2021-03-07] VITALS: Ht 177.8 cm; Wt 102.1 kg
[2021-03-07 19:23] VITALS: BP 139/99
--- NOTE | 2021-03-07 19:23 | NUR ---
PATIENT TAKEN TO BED 2 VIA GURNEY.
--- NOTE | 2021-03-07 19:31 | NUR ---
RECEIVED IN BED 2 WITH C/O RUQ PAIN
--- NOTE | 2021-03-07 19:38 | NUR ---
LABS DRAWN AND EKG DONE
[2021-03-07] MEDS ORDERED: FAMOTIDINE 20 MG/2 ML VIAL IVP ONE (19:45)
[2021-03-07] MEDS ORDERED: NACL 0.9% 1,000 ML IV ONE (19:45)
[2021-03-07] MEDS ORDERED: LORazepam 2 MG/ML VIAL IVP ONE (19:45)
[2021-03-07] MEDS ORDERED: ONDANSETRON 4 MG/2 ML VIAL IVP ONE (19:45)
[2021-03-07 19:54] LABS: BASOPHILS # (AUTO) 0.1 K/uL (0.00-0.22); BASOPHILS % (AUTO) 2.2 % (0.0-2.0); EOSINOPHILS # (AUTO) 0.1 K/uL (0-0.4); EOSINOPHILS % (AUTO) 1.1 % (0.0-4.0); HEMATOCRIT 39.6 % (36-52); HEMOGLOBIN 13.3 g/dL (12.0-18.0); LYMPHOCYTES # (AUTO) 1.6 K/uL (2.0-11.5); LYMPHOCYTES % (AUTO) 35.2 % (20.5-51.1); MEAN CORPUSCULAR HEMOGLOBIN 29 pg (27-31); MEAN CORPUSCULAR HGB CONC 34 g/dL (33-37); MEAN CORPUSCULAR VOLUME 86.4 fL (80-94); MONOCYTES # (AUTO) 0.7 K/uL (0.8-1.0); MONOCYTES % (AUTO) 14.7 % (1.7-9.3); NEUTROPHILS # (AUTO) 2.2 K/uL (1.8-7.7); NEUTROPHILS % (AUTO) 46.8 % (42.2-75.2); PLATELET COUNT (AUTO) 313 K/uL (140-450); RED BLOOD CELL COUNT(AUTO) 4.59 MIL/uL (4.20-6.10); RED CELL DISTRIBUTION WIDTH 16.8 % (11.6-13.7); WHITE BLOOD COUNT (AUTO) 4.6 K/uL (4.8-10.8)
--- NOTE | 2021-03-07 20:00 | NUR ---
RESTING COMFORTABLY. SANDWICH AND WATER GIVEN
[2021-03-07 20:16] LABS: ANION GAP 23.1 (8-16); CARBON DIOXIDE 19.2 mmol/L (21-32); CREATININE 0.8 mg/dL (0.6-1.3); MAGNESIUM 2.1 mg/dL (1.8-2.4); POTASSIUM 3.3 mmol/L (3.5-5.1)
[2021-03-07 20:27] LABS: ALBUMIN 3.7 g/dL (3.4-5.0); TOTAL BILIRUBIN 0.7 mg/dL (0.0-1.0)
[2021-03-07 20:35] LABS: APPEARANCE,URINE CLEAR (CLEAR); BILIRUBIN,URINE NEGATIVE (NEGATIVE); BLOOD, URINE NEGATIVE (NEGATIVE); LEUKOCYTE ESTERASE ,URINE NEGATIVE (NEGATIVE); NITRITE, URINE NEGATIVE (NEGATIVE); UGLUCOSE NEGATIVE (NEGATIVE)
[2021-03-07] MEDS ORDERED: LACTATED RINGERS 1,000 ML IV ONE (20:35)
[2021-03-07 20:42] LABS: COLOR,URINE STRAW (YELLOW)
[2021-03-07] MEDS ORDERED: POTASSIUM CHLORIDE 10 MEQ TABER PO ONE (21:35)
[2021-03-07] MEDS ORDERED: FOLIC ACID 1 MG TAB PO ONE ×2 (23:25→23:50)
[2021-03-07 23:27] LABS: ANION GAP 15.9 (8-16); CARBON DIOXIDE 22.5 mmol/L (21-32); CREATININE 0.6 mg/dL (0.6-1.3); POTASSIUM 3.4 mmol/L (3.5-5.1)
--- NOTE | 2021-03-07 23:30 | NUR ---
STANDING AT SIDE OF BED, VOIDING PER URINAL
[2021-03-07] MEDS: chlordiazePOXIDE 25 MG CAP PO SCH (23:36)
[2021-03-07] MEDS ORDERED: THIAMINE 200 MG/2 ML VIAL IM ONE (23:50)
[2021-03-08] MEDS ORDERED: LACTATED RINGERS 1,000 ML IV ONE
[2021-03-08] MEDS ORDERED: ONDANSETRON 4 MG TAB ONE (03:58)
[2021-03-08] MEDS ORDERED: ONDANSETRON 4 MG/2 ML VIAL IVP SCH (04:00)
[2021-03-08] MEDS ORDERED: chlordiazePOXIDE 25 MG CAP PO SCH (04:00)
--- NOTE | 2021-03-08 04:00 | NUR ---
C/O PAIN RETURNING "I THINK IT'S MY LIVER." MEDICATED ORDERED
[2021-03-08] MEDS: chlordiazePOXIDE 25 MG CAP PO SCH ×3 (04:12→17:11)
[2021-03-08] MEDS ORDERED: LORazepam 2 MG/ML VIAL IVP ONE (04:30)
--- NOTE | 2021-03-08 04:45 | NUR ---
C/O ANXIETY, MEDICATED ORDERED
[2021-03-08] MEDS: DEXT 5% / NACL 0.9% 500 ML IV SCH ×2 (06:55→07:55)
--- NOTE | 2021-03-08 07:11 | NUR ---
RECEIVED REPORT FROM HANNAH BOSS. TRANSFER OF CARE AT THIS TIME.
--- NOTE | 2021-03-08 07:46 | NUR ---
PT RESTING, LIGHTS OFF FOR PT COMFORT, VSS, WILL CONTINUE TO MONITOR. SEIZURE PRECAUTIONS IN PLACE.
[2021-03-08] MEDS ORDERED: DOCUSATE SODIUM 100 MG GELCAP PO PRN (09:00)
[2021-03-08] MEDS ORDERED: ONDANSETRON 4 MG/2 ML VIAL IVP PRN (09:00)
[2021-03-08] MEDS ORDERED: ZOLPIDEM 10 MG TAB PO PRN (09:00)
[2021-03-08] MEDS ORDERED: MAG SULF 2000 MG/WATER PREMIX 50 ML IV PRN (09:00)
[2021-03-08] MEDS ORDERED: POTASSIUM CHLORIDE 10 MEQ TABER PO PRN (09:00)
[2021-03-08] MEDS: ONDANSETRON 4 MG/2 ML VIAL IVP SCH ×4 (09:07→20:10)
--- NOTE | 2021-03-08 09:28 | NUR ---
GAVE REPORT TO HANNAH MCCURDY FOR PENDING TRANSFER. ETA 15MINUTES.
--- NOTE | 2021-03-08 09:36 | NUR ---
Patient will be admitted to care of DR. MILLS. Admited to TELE. Will go to room 112A. Belongings list completed. Report to HANNAH MCCURDY.
--- NOTE | 2021-03-08 09:45 | NUR ---
RECEIVED PATIENT FROM ER VIA [facility]. PATIENT IS BEING ADMITTED FOR ETOH AND ENCEPHALOPATHY. PATIENT IS ON ROOM AIR; RESPIRATIONS ARE EVEN AND UNLABORED. IV SITE IS A 20G AT THE LEFT AC; DRY, PATENT AND INTACT. PATIENT IS ALERT AND ORIENTED X4. NO S/S OF DISTRESS. ORIENTED PATIENT TO ROOM AND ALL SAFETY PRECAUTIONS ARE IN PLACE.
[2021-03-08] MEDS: LORazepam 2 MG/ML VIAL IVP PRN ×3 (10:37→19:08)
--- NOTE | 2021-03-08 10:40 | NUR ---
ADMINISTERED ALL SCHEDULED MEDICATIONS. PATIENT VERBALIZED UNDERSTANDING. ALL SAFETY PRECAUTIONS IN PLACE.
[2021-03-08 12:00] VITALS: BP 134/87
--- NOTE | 2021-03-08 12:15 | NUR ---
PATIENT IS RESTING IN BED. NO S/S OF DISTRESS. ALL SAFETY PRECAUTIONS IN PLACE.
[2021-03-08] MEDS: IBUPROFEN 800 MG TAB PO PRN ×2 (14:34→21:44)
--- NOTE | 2021-03-08 14:35 | NUR ---
PATIENT COMPLAINS OF ANXIETY. ADMINISTERED PRN ANXIETY MEDICATION. PATIENT VERBALIZED UNDERSTANDING.
--- NOTE | 2021-03-08 14:35 | NUR ---
PATIENT COMPLAINED OF 6/10 PAIN. ADMINISTERED PRN PAIN MEDICATION PER MD ORDER. PATIENT VERBALIZED UNDERSTANDING. ALL SAFETY PRECAUTIONS IN PLACE.
--- NOTE | 2021-03-08 15:03 | NUR ---
PATIENT HAS BEEN SCREENED AND CATEGORIZED LOW NUTRITION RISK. PATIENT WILL BE SEEN WITHIN 7 DAYS OF ADMISSION. 03/14/[address]
--- NOTE | 2021-03-08 15:35 | NUR ---
DC PLANNING PATIENT IS A 36 YEAR OLD MALE ADMITTED AT THE ED ON 03/08/2021. DUE TO SUBSTANCE ABUSE INTOXICATION. PATIENT HAS HX. OF EXTENSIVE ALCOHOL ABUSE. SW MET WITH PATIENT AT BEDSIDE TO DISCUSS AND GATHER PATIENT'S COLLATERAL INFORMATION. PATIENT REPORTED THAT HE HAS BEEN IN AND OUT OF DIFFERENT PLACES FOR HOUSING. RECENTLY BECAME HOMELESS DUE TO LOOSING HIS SSI, [place] AND ONLY RECEIVING G. R. ASSISTANCE. PER PATIENT HE ALSO HAS FAMILY SUPPORT WITH HIS SIBLINGS AND MOTHER IN THE AREA OF [place]. PER PATIENT HE IS ABLE TO STAY THERE WITH FAMILY SOMETIMES; BUT WILL LIKE TO GET ASSISTANCE WITH TRANSITIONAL OR MORE PERMANENT HOUSING. 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 PATIENT REPORTED HAVING NO ISSUES GETTING OR TAKING HIS MEDICATIONS. PATIENT ALSO REPORTED NOT HAVING ANY DME NEEDS. PATIENT STATED THAT HE WILL NEED A BUS PASS TO GO BACK TO HIS MOTHERS HOME AFTER HE IS DISCHARGE.SW WILL FOLLOW UP NEEDED.
--- NOTE | 2021-03-08 15:37 | NUR ---
DC PLANNING: CM SPOKE WITH THE PATIENT AT BEDSIDE. THE PATIENT STATES THAT HE'S HOMELESS AND THAT HE SOMETIMES STAYS WITH FRIENDS. HE STATES THAT HE HAS RECENTLY BEEN SLEEPING ON THE STREET, AND HAD RECENTLY BEEN STAYING AT [facility] IN [place]. HE STATES HE WAS ASKED TO LEAVE THE FACILITY BECAUSE OF HIS SEIZURES AND MD APPOINTMENTS. THE PATIENT STATES THAT HE WAS IN A SNF IN [place] BUT CAN'T REMEMBER THE NAME AND ASKED IF HE COULD BE PLACED IN A SNF AGAIN. CM ASKED ABOUT FAMILY, HE STATES THAT HE HAS VERY LITTLE TO DO WITH HIS MOTHER IN [place] AND THAT HIS BROTHER CHANNING KNOWS THAT HE'S HOMELESS. CM ASKED ABOUT THE PATIENT GOING TO A ALF, THE PATIENT STATES THAT HE DOESN'T WANT TO. HE ALSO STATES THAT HE NEEDS HELP REINSTATING HIS SSDI, AND THAT HE GETS GFR AND FOOD STAMPS. HE ALSO STATES THAT HE DOESN'T HAVE A CELL PHONE AND NEEDS HELP REACHING [facility]. CM ENDORSED THAT THE SW WILL FOLLOW UP WITH HIM TO GIVE HIM RESOURCES. CM WILL FOLLOW FOR NEEDS.
[2021-03-08 16:00] VITALS: BP 131/76
--- NOTE | 2021-03-08 16:50 | NUR ---
PATIENT IS AWAKE AND LAYING IN BED. NO S/S OF DISTRESS. RESPIRATIONS EVEN AND UNLABORED. ALL SAFETY PRECAUTIONS IN PLACE.
--- NOTE | 2021-03-08 19:30 | NUR ---
ENDORSED PATIENT TO CORRUGATED SHEET MATERIAL SHEETER RN JORGE. PATIENT IS STABLE.
--- NOTE | 2021-03-08 19:35 | NUR ---
RECEIVED PT FROM DAY SHIFT RN FOR CONTINUITY OF CARE. PT IS STABLE. NOT IN ANY DISTRESS. CALL LIGHT WITHIN REACH. WILL CONTINUE TO MONITOR.
[2021-03-08 20:00] VITALS: BP 128/75
--- NOTE | 2021-03-08 20:00 | NUR ---
ADMINISTERED SCHEDULED MEDICATIONS. NO ADVERSE DRUG REACTION NOTED. PT TOLERATED WELL. ALL PRECAUTIONS IN PLACE.
--- NOTE | 2021-03-08 21:45 | NUR ---
PATIENT COMPLAINED OF PAIN. ADMINISTERED PRN PAIN MEDICATION PER MD ORDER.NO ADVERSE DRUG REACTION NOTED. PT TOLERATED WELL. ALL SAFETY PRECAUTIONS IN PLACE.
[2021-03-09] VITALS: BP 132/83
[2021-03-09] MEDS: ONDANSETRON 4 MG/2 ML VIAL IVP SCH ×3 (00:13→08:23)
--- NOTE | 2021-03-09 00:15 | NUR ---
PT COMPAINED Addendum: 03/09/21 at 0228 by Gen Camacho RN 03/09/21 0015.PT COMPLAINED OF ANXIETY. ADMINISTERED SCHEDULED MEDICATION AND PRN MEDICATION PER MD ORDER. NO ADVERSE DRUG REACTION NOTED. PT TOLERATED WELL. NO OTHER COMPLAINS AT THIS MOMENT. CALL LIGHT WITHIN REACH. WILL CONTINUE TO MONITOR.
[2021-03-09] MEDS: LORazepam 2 MG/ML VIAL IVP PRN ×2 (00:19→04:22)
--- NOTE | 2021-03-09 02:30 | NUR ---
PATIENT IS SLEEPING IN BED. NO S/S OF DISTRESS. ALL SAFETY PRECAUTIONS IN PLACE.
--- NOTE | 2021-03-09 03:20 | NUR ---
IV CATHETER ON RIGHT HAND WAS PULLED OUT. CALLED HELP FROM ER TO REINSERT ON THE LEFT FOOT G22.
[2021-03-09 04:00] VITALS: BP 140/87
--- NOTE | 2021-03-09 04:05 | NUR ---
ADMINISTERED SCHEDULED MEDICATIONS. NO ADVERSE DRUG REACTION NOTED. PT TOLERATED WELL.CALL LIGHT WITHIN REACH.WILL CONTINUE TO MONITOR.
[2021-03-09 07:15] LABS: BASOPHILS # (AUTO) 0.1 K/uL (0.00-0.22); EOSINOPHILS # (AUTO) 0.1 K/uL (0-0.4); EOSINOPHILS % (AUTO) 3.5 % (0.0-4.0); HEMATOCRIT 35.4 % (36-52); HEMOGLOBIN 11.9 g/dL (12.0-18.0); LYMPHOCYTES # (AUTO) 1.4 K/uL (2.0-11.5); LYMPHOCYTES % (AUTO) 34.4 % (20.5-51.1); MEAN CORPUSCULAR HEMOGLOBIN 30 pg (27-31); MEAN CORPUSCULAR HGB CONC 34 g/dL (33-37); MEAN CORPUSCULAR VOLUME 89.2 fL (80-94); MONOCYTES # (AUTO) 0.5 K/uL (0.8-1.0); MONOCYTES % (AUTO) 13.6 % (1.7-9.3); NEUTROPHILS # (AUTO) 1.9 K/uL (1.8-7.7); NEUTROPHILS % (AUTO) 46.5 % (42.2-75.2); PLATELET COUNT (AUTO) 239 K/uL (140-450); RED BLOOD CELL COUNT(AUTO) 3.97 MIL/uL (4.20-6.10); RED CELL DISTRIBUTION WIDTH 17.2 % (11.6-13.7)
[2021-03-09 07:21] LABS: ANION GAP 16.2 (8-16); CARBON DIOXIDE 23.1 mmol/L (21-32); CREATININE 0.8 mg/dL (0.6-1.3); POTASSIUM 3.3 mmol/L (3.5-5.1)
--- NOTE | 2021-03-09 07:21 | NUR ---
PT ENDORSED TO DAY SHIFT NURSE FOR CONTINUITY OF CARE. PT IN STABLE CONDITION. NO ACUTE DISTRESS NOTED. CALL LIGHT WITHIN REACH. SAFETY MEASURES IN PLACE .
--- NOTE | 2021-03-09 07:30 | NUR ---
RECEIVED REPORT FROM AM NURSE. PT IN BED WITH HOB ELEVATED. AOX4, ABLE TO MAKE NEEDS KNOWN VERBALLY. NO C/O PAIN NO RESPIRATORY DISTRESS ON ROOM AIR. PT AMBULATORY. BOWEL AND BLADDER CONTINENT. IV SITE 22G ON LEFT FOOT. SEEN BY DR MILLS, DISCHARGE ORDER NOTED. SKIN INTACT. SAFETY AND FALL PRECAUTIONS IN PLACE. CALL LIGHT WITHIN REACH. WILL CONTINUE TO MONITOR
[2021-03-09 08:00] VITALS: BP 138/76
[2021-03-09] MEDS ORDERED: LIB25 PO (08:06)
[2021-03-09] MEDS: chlordiazePOXIDE 25 MG CAP PO SCH (08:23)
--- NOTE | 2021-03-09 09:14 | NUR ---
DUE MEDS GIVEN. PRN K DUR GIVEN
[2021-03-09] MEDS ORDERED: MAGNESIUM OXIDE 400 MG TAB PO SCH (09:47)
--- NOTE | 2021-03-09 10:45 | NUR ---
DISCHARGE INSTRUCTIONS AND PRESCRIPTION GIVEN. PT VERBALIZED UNDERSTANDING
--- NOTE | 2021-03-09 11:10 | NUR ---
PT PICKED UP TAXI. IN STABLE CONDITION
[2021-03-10] MEDS ORDERED: LIB25 PO (11:14)
== END 2021-03-09 11:10 | disposition home or self-care (01) | DRG 57 ==
LOC: MED 19:17 → MTU 03-08 04:39
PROVIDERS: ADMIT General Practice; ATTEND General Practice
DX: G31.2 Degeneration of nervous system due to alcohol (principal); E87.2 Acidosis; F10.139 Alcohol abuse with withdrawal, unspecified; I10 Essential (primary) hypertension; F10.129 Alcohol abuse with intoxication, unspecified; Y90.9 Presence of alcohol in blood, level not specified; E83.51 Hypocalcemia; R74.01 Elevation of levels of liver transaminase levels; E87.6 Hypokalemia; Z88.6 Allergy status to analgesic agent; Z88.5 Allergy status to narcotic agent; Z88.8 Allergy status to other drugs, medicaments and biological substances; Z79.899 Other long term (current) drug therapy; Z59.00 Homelessness unspecified; Z86.73 Personal history of transient ischemic attack (TIA), and cerebral infarction without residual deficits
CPT/HCPCS: 36415; 80048; 80053; 81003; 83036; 83605; 83690; 83735; 84484; 85025; 87081; 93005; 96361; 96365; 96375; 99285; G0482; J1644; J2060; J2405; J3411; J3490; Q0162; Q9967